=== PATIENT | male | born 1940 | race Caucasian/White ===

== ENCOUNTER 2023-11-14 21:36 | Inpatient (IN) ==
[2023-11-14] MEDS: HALOPERIDOL LACTATE 5 MG/ML 1 ML VIAL IM STA ×2 (22:42→23:33)
[2023-11-14] MEDS: LORazepam 1 MG/1 ML SYR ED Inj Use IM STA (22:46)
[2023-11-14] MEDS: LORazepam 2 MG/1 ML VIAL IM STA (23:33)
[2023-11-14 23:43] LABS: Basophils # (auto) 0.02 K/uL (0.00-0.20); Basophils % (auto) 0.5 %; Eosinophils # (auto) 0.11 K/uL (0.00-0.50); Eosinophils % (auto) 2.8 %; Hematocrit (blood only) 36.3 % (42.0-52.0); Hemoglobin 11.8 g/dl (14.0-18.0); Immature Granulocytes # (auto) 0.01 K/uL (0.01-0.20); Immature Granulocytes % (auto) 0.3 %; Lymphocytes # (auto) 1.07 K/uL (1.20-3.40); Lymphocytes % (auto) 27.1 %; Mean Corpuscular Hemoglobin 30.4 pg (25.0-34.0); Mean Corpuscular Hgb Conc 32.5 g/dL (32.0-36.0); Mean Corpuscular Volume 93.6 fL (80.0-100.0); Mean Platelet Volume 10.9 fL (9.4-12.4); Monocytes # (auto) 0.39 K/uL (0.11-0.59); Monocytes % (auto) 9.9 %; Neutrophils # (auto) 2.35 K/uL (1.40-6.50); Neutrophils % (auto) 59.4 %; Platelet Count 173 K/uL (130-400); RDW Coefficient of Variation 13.2 % (11.5-14.5); RDW Standard Deviation 45.1 fL (36.4-46.3); Red Blood Count 3.88 M/uL (4.70-6.10); White Blood Count 3.95 K/ul (4.8-10.8)
[2023-11-14 23:47] LABS: Albumin Globulin Ratio 1.5 (0.9-2); Albumin Level 3.8 gm/dl (3.4-5.0); BUN Creatinine Ratio 27.9 (10-20); Bilirubin,Total 0.6 mg/dl (0.2-1.0); Calcium 9.1 mg/dl (8.6-10.3); Creatinine Clr Calc Pharmacy 84.1 ml/min; Est GFR (African American) 103.1 ml/min; Est GFR (Non-African American) 88.9 ml/min; Globulin 2.5 gm/dl (2.5-4.0); Magnesium 1.7 mg/dl (1.7-2.4); Potassium 4.4 mmol/L (3.5-5.1); Total Protein 6.3 gm/dl (6.0-8.3)
[2023-11-14 23:54] LABS: Troponin I High Sensitivity 7.1 pg/ml (0-20)
[2023-11-15 00:04] LABS: Thyroid Stimulating Hormone 2.13 uIu/ml (0.300-4.500)
[2023-11-15 00:21] LABS: Appearance Urine Clear (Clear); Bilirubin Urine Negative (Negative); Blood Urine Negative (Negative); Color Urine Yellow; Glucose Urine UA Negative (Negative); Ketones Urine Negative (Negative); Leukocyte Esterase Urine Negative (Negative); Nitrite Urine Negative (Negative); Protein Urine Negative (Negative); Specific Gravity Urine 1.029 (1.000-1.030); Urobilinogen Urine Negative (Negative)
--- NOTE | 2023-11-15 01:08 | CT Scan Report ---
Exam(s): CT HEAD Without Contrast EXAM: CT Head Without Intravenous Contrast CLINICAL HISTORY: Reason for exam: AMS, agitation. TECHNIQUE: Axial computed tomography images of the head/brain without intravenous contrast. CTDI is 37.51 mGy and DLP is 624.41 mGy-cm. Automated exposure control was utilized for the study. A dose lowering technique was utilized adhering to the principles of ALARA. COMPARISON: No relevant prior studies available. FINDINGS: No acute intracranial hemorrhage. No midline shift or mass effect. The territorial gibbs-white matter differentiation is maintained throughout. Age-related cerebral volume loss. Periventricular and subcortical white matter hypoattenuation, consistent with chronic microangiopathy. The visualized orbits appear grossly unremarkable. The calvarium is intact. The visualized paranasal sinuses and mastoid air cells are grossly clear. IMPRESSION: No acute intracranial hemorrhage, midline shift, or mass effect. Electronically signed by: Guzman Curry MD 11/15/23 01:07 AM
--- NOTE | 2023-11-15 01:29 | History & Physical Report ---
Date of Service November 15, 2023 Assessment & Plan (1) Agitation: Plan: Patient with worsening aggression over the last 1-2 weeks. Per chart review, patient possibly on Abilify in the past. He was recently started on Haldol, presumably for his behavioral disturbances. Somnolent now after receiving Haldol and Ativan in the ER No obvious medical source of delirium to explain worsening symptoms -Admit to medical -Continue PO Haldol as needed for agitation competitive with care -One to one observation as needed -Restraints for now -Psychiatry consultation appreciated for aggression management (2) Lewy body dementia: Plan: Noted -Haldol recently started as needed for agitation -Haldol 1mg po TID as needed -Psychiatry consultation appreciated -Ideally patient will be able to return to [facility] if his agitation can be adequately controlled with medications (3) Hyperlipidemia: Plan: Chronic. Stable -Continue Atorvastatin -Continue Fenofibrate (4) Hypertension: Plan: Chronic. Well controlled -Continue Enalapril -Monitor (5) CAD (coronary artery disease): Plan: Chronic. Stable -Continue Atorvastatin, Plavix, Enalapril History of Present Illness Chief Complaint: agitation Primary Care Provider: Maggie Hayward, Patient somnolent after receiving Haldol and Ativan in the ER. History obtained through discussion with ER staff and chart review. Patient is an 83yo male with history of HTN, HLP and Dementia (likely Lewy body) presenting from [facility] with increased aggressive behavior. Patient with occasional outbursts, however, has had worsening symptoms over the last 1-2 weeks. This evening he was very difficult to control and did become aggressive with several staff members at his intermediate. In the ER patient was again aggressive with staff members. He was given Haldol and Ativan with improvement. Now resting comfortably ER Course: Haldol 1 + 2 mg Ativan 1 + 1 mg Allergies Allergy/AdvReac Type Severity Reaction Status Date / Time No Known Allergies Allergy Verified 10/11/23 21:41 Home Medications Medication Instructions Recorded Confirmed Type atorvastatin 80 mg tablet (Lipitor) 80 mg PO DAILY 01/09/19 10/11/23 History fenofibrate nanocrystallized 48 mg 48 mg PO DAILY 01/09/19 10/11/23 History tablet (Tricor) ramipril 2.5 mg capsule (Altace) 2.5 mg PO QAM 01/09/19 10/11/23 History melatonin 5 mg capsule 5 mg PO HS 11/05/21 10/11/23 History clopidogrel 75 mg tablet (Plavix) 75 mg PO DAILY 12/09/22 10/11/23 History olanzapine 2.5 mg tablet (Zyprexa) 2.5 mg PO BID 09/30/23 10/11/23 History Past Med/Surg History Problem List Agitation (Acute) AMS (altered mental status) (Acute) Lewy body dementia (Acute) [facility] following Thickened nails Hyperlipidemia Hypertension CAD (coronary artery disease) Surgical History H/O wrist surgery History of colonoscopy History of cardiac cath 05/2003 Family History Mother Cancer Family/Other No problems noted. Father Coronary heart disease Social History Smoking Status: Former smoker Do You Dip or Chew Tobacco: No; Hx Alcohol Use: No Hx Substance Use: No Preferred Language: Cambodian marital status: Current Living Situation: Spouse current occupational status: retired Feels Safe at Home: Yes Dental Care, Regularly: Yes Physical Activity Frequency: Does not Exercise Seatbelt Use: always Review of Systems Review of Systems: All systems reviewed & are unremarkable except as noted in HPI & below Physical Exam Physical Exam: General: patient somnolent, opens eyes to verbal stimuli, does not answer questions or follow commands at this time Skin: warm, dry, intact, no rashes or lesions HEENT: somnolent, MMM, Neck supple, PERRL Heart: +S1/S2, regular, no m/r/g Lungs: equal air entry bilaterally, no rales/rhonchi/wheezes Abd: +BS, soft, NT/ND, no masses/organomegaly/ascites Ext: warm, 2+ pulses in UE/LE bilaterally, no clubbing/cyanosis or edema Neuro: moving all extremities Results & Data Results & Data Vital Signs (Past 12 Hours) Vital Signs Pulse Pulse Resp BP Pulse Ox O2 Del Method 11/15/23 00:20 65 11/14/23 22:16 98 Room Air 11/14/23 21:36 98 H Room Air 11/14/23 21:36 Room Air 11/14/23 21:27 67 18 136/95 98 Room Air Laboratory Results Laboratory Results WBC 3.95 K/ul (4.8-10.8) L 11/14/23 23:03 RBC 3.88 M/uL (4.70-6.10) L 11/14/23 23:03 Hgb 11.8 g/dl (14.0-18.0) L 11/14/23 23:03 Hct 36.3 % (42.0-52.0) L 11/14/23 23:03 MCV 93.6 fL (80.0-100.0) 11/14/23 23:03 MCH 30.4 pg (25.0-34.0) 11/14/23 23:03 MCHC 32.5 g/dL (32.0-36.0) 11/14/23 23:03 RDW Std Deviation 45.1 fL (36.4-46.3) 11/14/23 23:03 RDW Coeff of Sergey 13.2 % (11.5-14.5) 11/14/23 23:03 Plt Count 173 K/uL (130-400) 11/14/23 23:03 MPV 10.9 fL (9.4-12.4) 11/14/23 23:03 Immature Gran % (Auto) 0.3 % 11/14/23 23:03 Neut % (Auto) 59.4 % 11/14/23 23:03 Lymph % (Auto) 27.1 % 11/14/23 23:03 Robertson % (Auto) 9.9 % 11/14/23 23:03 Eos % (Auto) 2.8 % 11/14/23 23:03 Baso % (Auto) 0.5 % 11/14/23 23:03 Neut # (Auto) 2.35 K/uL (1.40-6.50) 11/14/23 23:03 Lymph # (Auto) 1.07 K/uL (1.20-3.40) L 11/14/23 23:03 Robertson # (Auto) 0.39 K/uL (0.11-0.59) 11/14/23 23:03 Eos # (Auto) 0.11 K/uL (0.00-0.50) 11/14/23 23:03 Baso # (Auto) 0.02 K/uL (0.00-0.20) 11/14/23 23:03 Immature Gran # (Auto) 0.01 K/uL (0.01-0.20) 11/14/23 23:03 Sodium 142 mmol/L (136-145) 11/14/23 23:03 Potassium 4.4 mmol/L (3.5-5.1) 11/14/23 23:03 Chloride 110 mmol/L (98-107) H 11/14/23 23:03 Carbon Dioxide 26 mmol/L (21-32) 11/14/23 23:03 Anion Gap 6 (3-11) 11/14/23 23:03 BUN 19 mg/dl (6-23) 11/14/23 23:03 Creatinine 0.68 mg/dl (0.6-1.4) 11/14/23 23:03 Est Cr Clr Drug Dosing 84.1 ml/min 11/14/23 23:03 Est GFR ( Amer) 103.1 ml/min 11/14/23 23:03 Est GFR (Non-Af Amer) 88.9 ml/min 11/14/23 23:03 BUN/Creatinine Ratio 27.9 (10-20) H 11/14/23 23:03 Glucose 95 mg/dl (70-99(Fasting)) 11/14/23 23:03 Calcium 9.1 mg/dl (8.6-10.3) 11/14/23 23:03 Magnesium 1.7 mg/dl (1.7-2.4) 11/14/23 23:03 Total Bilirubin 0.6 mg/dl (0.2-1.0) 11/14/23 23:03 AST 33 U/L (13-39) 11/14/23 23:03 ALT 23 U/L (7-52) 11/14/23 23:03 Alkaline Phosphatase 69 U/L (34-104) 11/14/23 23:03 Troponin I High Sens 7.1 pg/ml (0-20) 11/14/23 23:03 Total Protein 6.3 gm/dl (6.0-8.3) 11/14/23 23:03 Albumin 3.8 gm/dl (3.4-5.0) 11/14/23 23:03 Globulin 2.5 gm/dl (2.5-4.0) 11/14/23 23:03 Albumin/Globulin Ratio 1.5 (0.9-2) 11/14/23 23:03 TSH 2.130 uIu/ml (0.300-4.500) 11/14/23 23:03 Urine Color Yellow 11/14/23 23:25 Urine Appearance Clear (Clear) 11/14/23:25 Urine pH 5.0 (4.5-7.5) 11/14/23:25 Ur Specific [place] 1.029 (1.000-1.030) 11/14/23 23: Urine Protein Negative (Negative) 11/14/23: Urine Glucose (UA) Negative (Negative) 11/14/23 23: Urine Ketones Negative (Negative) 11/14/23: Urine Blood Negative (Negative) 11/14/23 23: Urine Nitrite Negative (Negative) 11/14/23: Urine Bilirubin Negative (Negative) 11/14/23 23: Urine Urobilinogen Negative (Negative) 11/14/23 23: Ur Leukocyte Esterase Negative (Negative) 11/14/23 23:[address] 11/14/23 23:53 Exam(s): CT HEAD Without Contrast EXAM: CT Head Without Intravenous Contrast CLINICAL HISTORY: Reason for exam: AMS, agitation. TECHNIQUE: Axial computed tomography images of the head/brain without intravenous contrast. CTDI is 37.51 mGy and DLP is 624.41 mGy-cm. Automated exposure control was utilized for the study. A dose lowering technique was utilized adhering to the principles of ALARA. COMPARISON: No relevant prior studies available. FINDINGS: No acute intracranial hemorrhage. No midline shift or mass effect. The territorial gibbs-white matter differentiation is maintained throughout. Age-related cerebral volume loss. Periventricular and subcortical white matter hypoattenuation, consistent with chronic microangiopathy. The visualized orbits appear grossly unremarkable. The calvarium is intact. The visualized paranasal sinuses and mastoid air cells are grossly clear. IMPRESSION: No acute intracranial hemorrhage, midline shift, or mass effect. Electronically signed by: Guzman Curry MD 11/15/23 01:07 AM ECG Additional Comments: EKG with SR at 64bpm, 1st degree AV block with FE=526, PKV=396, NIm=150, no acute ischemic changes PG Care Time/CCT Total # of Minutes Spent Total Time Spent with Patient: Total time spent is greater than 50% in coordination of care (as documented) at patient's floor/unit and/or counseling patient: Coding Level of Care Code 89233 INT INP/OBS CARE 3/75MIN Diagnoses Agitation R45.1 Lewy body dementia G31.83; F02.80 Hyperlipidemia E78.5 Hypertension I10 CAD (coronary artery disease) I25.10
--- NOTE | 2023-11-15 02:33 | Emergency Department Note ---
Impression & Plan AMS (altered mental status), Lewy body dementia, Agitation ED Provider Note NAME: RAJINDER PATEL AGE: 83 SEX: Male INFORMANT: EMS and staff at his facility ED PROVIDER(S): Kenroy Bennett MD CHIEF COMPLAINT: Altered mental status PLAN: Disposition: Admitted Outpatient prescription management: none Referral: None MEDICAL DECISION MAKING: Patient presented because of concerns for aggression and agitation. Patient did require one-on-one here. He was not responding to verbal command. He did require full side rails as well as physical hold at time. Patient was threatening and kicking at staff. Patient did require sedation to assist with his medical workup and to protect him as well as staff. Patient was initially given a 1 mg dose of Haldol and Ativan IM. This helped somewhat however patient still required additional medication in order to help control him. He was given a 1 mg IM dose of Ativan and a 2 mg dose of IM Haldol. Patient was monitored. His O2 saturations were borderline and he was given supplemental oxygen. Head CT did not reveal any acute findings. Patient CBC and chemistry panel were unremarkable as was his urinalysis. No sign of UTI or acute brain bleed. No gross abnormalities on laboratory testing. Discussed with manager of exhibitions and collections. In light of his aggressive behavior that cannot be controlled at his facility further management in the hospital was felt to be appropriate. [facility] Patient was evaluated in the ER and admitted for further management. Care/management discussed with: manager of exhibitions and collections Level of care consideration(s): After review of the information above and other included data, I feel the patient requires escalation of care to admission Triage Nursing notes: reviewed and agree them. Vital Signs: reviewed and remarkable for no significant abnormalities Additional History obtained from: Patient's staff at his residence noted that he was physically aggressive. He was grabbing staff. He was kicking. He was not controllable for them. Chronic Medical/Social Conditions affecting care: Dementia Prior/ Outside/ External records reviewed: none Differential Diagnosis: Advancing dementia, infection, hypoglycemia, electrolyte abnormalities, overdose, toxicologic, cardiac sources, intracerebral event, neurologic, trauma, as well as other pathologies. Diagnostics, independently interpreted by me: ECG: Twelve-lead ECG was a sinus rhythm with first-degree block at 64 bpm. No evidence of ST elevation or depression. Cardiac Monitoring: Cardiac monitoring ordered by me: The patient was placed on continuous cardiac monitoring and observed. It revealed a normal sinus rhythm at 65 beats per minute without ectopy or evidence of dysrhythmia. Medical decision rules: none Imaging studies: Chest x-ray. Findings: A chest x-ray was performed and revealed no pneumothorax, effusion, infiltrate, pulmonary edema, free air under the diaphragm, or wide mediastinum. Impression: No acute disease. Head CT: A noncontrast CT scan of the head was performed and was negative for tumor, fracture, intracranial hemorrhage, or other acute pathology. HPI: 83 year old Male arrives for evaluation of altered mental status. [facility]. Staff reports that he was physically aggressive. He was grabbing and kicking at staff. He physically grabbed and lifted one of the staff members. They were unable to control him. He has a history of dementia and does get altered at times. This is the most aggressive that he has been. Because of their inability to control him they were concerned and EMS was summoned. Patient was brought to the ER for further management. History is limited secondary to the patient's dementia. He is uncooperative. PAST MEDICAL HISTORY: See Below, dementia PAST SURGICAL HISTORY: See Below, SOCIAL HISTORY: See Below, retired HOME MEDICATIONS: See Below ALLERGIES: See Below VITALS: See Below PHYSICAL EXAMINATION: GENERAL: Awake, alert, [id number], in no acute distress HENT: Normocephalic, atraumatic. Oropharynx unremarkable. EYES: Normal conjunctiva. Sclera non-icteric. NECK: Supple. No nuchal rigidity. FROM. No JVD. RESPIRATORY: Clear to auscultation. CARDIAC: Regular rate, normal rhythm. Extremities warm and well perfused. Pulses equal. ABDOMEN: Soft, non-distended. No tenderness to palpation. No rebound or guarding. No masses. RECTAL: Deferred. MUSCULOSKELETAL: Chest examination reveals no tenderness. The back is symmetrical on inspection without obvious abnormality. There is no CVA tenderness to palpation. No joint edema. LOWER EXTREMITIES: Calves are equal size bilaterally and non-tender. No edema. No discoloration. NEURO: Demented sensorium. Moving arms and legs purposefully. Difficulty with following commands. SKIN: No rash or jaundice noted. PROCEDURES: none CRITICAL CARE: I have personally spent 35 minutes of critical care time in the direct management of this patient. This includes bedside care, interpretation of diagnostic studies, and testing, discussion with consultants, patient, case management and other required patient management activities. These minutes are in excess of all separately billable procedures. OBSERVATION NOTE: none Past Med/Surg History Problem List (Updated 11/15/23 @ 02:33 by Kenroy Bennett MD) Agitation (Acute) AMS (altered mental status) (Acute) Lewy body dementia (Acute) [facility] following Thickened nails Hyperlipidemia Hypertension CAD (coronary artery disease) Surgical History H/O wrist surgery History of colonoscopy History of cardiac cath 05/2003 Family History Mother Cancer Family/Other No problems noted. Father Coronary heart disease Social History Smoking Status: Former smoker Do You Dip or Chew Tobacco: No; Hx Alcohol Use: No Hx Substance Use: No Preferred Language: Greek marital status: Current Living Situation: Spouse current occupational status: retired Feels Safe at Home: Yes Dental Care, Regularly: Yes Physical Activity Frequency: Does not Exercise Seatbelt Use: always Allergies Allergies Allergy/AdvReac Type Severity Reaction Status Date / Time No Known Allergies Allergy Verified 10/11/23 21:41 Home Meds Home Medications Medication Instructions Recorded Confirmed atorvastatin 80 mg tablet (Lipitor) 80 mg PO DAILY 01/09/19 10/11/23 fenofibrate nanocrystallized 48 mg 48 mg PO DAILY 01/09/19 10/11/23 tablet (Tricor) ramipril 2.5 mg capsule (Altace) 2.5 mg PO QAM 01/09/19 10/11/23 melatonin 5 mg capsule 5 mg PO HS 11/05/21 10/11/23 clopidogrel 75 mg tablet (Plavix) 75 mg PO DAILY 12/09/22 10/11/23 olanzapine 2.5 mg tablet (Zyprexa) 2.5 mg PO BID 09/30/23 10/11/23 Results & Data (ED) Vital Signs Vital Signs - 24 hr 11/14/23 21:27 11/14/23 21:36 11/14/23 21:36 Pulse Rate 67 Pulse Rate [Foot] 98 H Respiratory Rate 18 Respiratory Effort / Characteristics Non-Labored Non-Labored Respiratory Depth Normal Normal Blood Pressure 136/95 Blood Pressure Mean 108 Pulse Oximetry 98 Oxygen Delivery Method Room Air Room Air Room Air Sepsis Recent Fever Within 48 Hours No Sepsis New/Unexplained Change in Mental Status No Sepsis Action Taken by Nursing No Action Required 11/14/23 22:16 11/14/23 23:36 11/15/23 00:20 Pulse Rate 65 Pulse Rate [Foot] Respiratory Rate Respiratory Effort / Characteristics Non-Labored Respiratory Depth Normal Blood Pressure Blood Pressure Mean Pulse Oximetry 98 Oxygen Delivery Method Room Air Sepsis Recent Fever Within 48 Hours Sepsis New/Unexplained Change in Mental Status Sepsis Action Taken by Nursing Laboratory Data 11/14/23 23:03 11/14/23 23:03 Lab Results 11/14/23 11/14/23 Range/Units 23:03 23:25 WBC 3.95 L (4.8-10.8) K/ul RBC 3.88 L (4.70-6.10) M/uL Hgb 11.8 L (14.0-18.0) g/dl Hct 36.3 L (42.0-52.0) % MCV 93.6 (80.0-100.0) fL MCH 30.4 (25.0-34.0) pg MCHC 32.5 (32.0-36.0) g/dL RDW Std Deviation 45.1 (36.4-46.3) fL RDW Coeff of Sergey 13.2 (11.5-14.5) % Plt Count 173 (130-400) K/uL MPV 10.9 (9.4-12.4) fL Immature Gran % (Auto) 0.3 % Neut % (Auto) 59.4 % Lymph % (Auto) 27.1 % [place] % (Auto) 9.9 % Eos % (Auto) 2.8 % Baso % (Auto) 0.5 % Neut # (Auto) 2.35 (1.40-6.50) K/uL Lymph # (Auto) 1.07 L (1.20-3.40) K/uL [place] # (Auto) 0.39 (0.11-0.59) K/uL Eos # (Auto) 0.11 (0.00-0.50) K/uL Baso # (Auto) 0.02 (0.00-0.20) K/uL Immature Gran # (Auto) 0.01 (0.01-0.20) K/uL Sodium 142 (136-145) mmol/L Potassium 4.4 (3.5-5.1) mmol/L Chloride 110 H (98-107) mmol/L Carbon Dioxide 26 (21-32) mmol/L Anion Gap 6 (3-11) BUN 19 (6-23) mg/dl Creatinine 0.68 (0.6-1.4) mg/dl Est Cr Clr Drug Dosing 84.1 ml/min Est GFR ( Amer) 103.1 ml/min Est GFR (Non-Af Amer) 88.9 ml/min BUN/Creatinine Ratio 27.9 H (10-20) Glucose 95 (70-99(Fasting)) mg/dl Calcium 9.1 (8.6-10.3) mg/dl Magnesium 1.7 (1.7-2.4) mg/dl Total Bilirubin 0.6 (0.2-1.0) mg/dl AST 33 (13-39) U/L ALT 23 (7-52) U/L Alkaline Phosphatase 69 (34-104) U/L Troponin I High Sens 7.1 (0-20) pg/ml Total Protein 6.3 (6.0-8.3) gm/dl Albumin 3.8 (3.4-5.0) gm/dl Globulin 2.5 (2.5-4.0) gm/dl Albumin/Globulin Ratio 1.5 (0.9-2) TSH 2.130 (0.300-4.500) uIu/ml Urine Color Yellow Urine Appearance Clear (Clear) Urine pH 5.0 (4.5-7.5) Ur Specific [place] 1.029 (1.000-1.030) Urine Protein Negative (Negative) Urine Glucose (UA) Negative (Negative) Urine Ketones Negative (Negative) Urine Blood Negative (Negative) Urine Nitrite Negative (Negative) Urine Bilirubin Negative (Negative) Urine Urobilinogen Negative (Negative) Ur Leukocyte Esterase Negative (Negative) Administered Medications Discontinued Medications Haloperidol Lactate (Haloperidol Lactate 5 Mg/Ml 1 Ml Vial) 1 mg IM NOW STA Stop: 11/14/23 22:27 Last Admin: 11/14/23 22:42 Dose: 1 mg Documented By: ERIKA Haloperidol Lactate (Haloperidol Lactate 5 Mg/Ml 1 Ml Vial) 2 mg IM NOW STA Stop: 11/14/23 23:25 Last Admin: 11/14/23 23:33 Dose: 2 mg Documented By: ERIKA Lorazepam (Lorazepam 1 Mg/1 Ml Syr Ed Inj Use) 1 mg IM ONE STA Stop: 11/14/23 22:27 Last Admin: 11/14/23 22:46 Dose: 1 mg Documented By: ERIKA Lorazepam (Lorazepam 2 Mg/1 Ml Vial) 1 mg IM NOW STA Stop: 11/14/23 23:25 Last Admin: 11/14/23 23:33 Dose: 1 mg Documented By: ERIKA Imaging Data Radiologist's Impression: Head CT 11/14/23 23:53 Exam(s): CT HEAD Without Contrast EXAM: CT Head Without Intravenous Contrast CLINICAL HISTORY: Reason for exam: AMS, agitation. TECHNIQUE: Axial computed tomography images of the head/brain without intravenous contrast. CTDI is 37.51 mGy and DLP is 624.41 mGy-cm. Automated exposure control was utilized for the study. A dose lowering technique was utilized adhering to the principles of ALARA. COMPARISON: No relevant prior studies available. FINDINGS: No acute intracranial hemorrhage. No midline shift or mass effect. The territorial gibbs-white matter differentiation is maintained throughout. Age-related cerebral volume loss. Periventricular and subcortical white matter hypoattenuation, consistent with chronic microangiopathy. The visualized orbits appear grossly unremarkable. The calvarium is intact. The visualized paranasal sinuses and mastoid air cells are grossly clear. IMPRESSION: No acute intracranial hemorrhage, midline shift, or mass effect. Electronically signed by: Guzman Curry MD 11/15/23 01:07 AM Discharge Plan Visit Data Chief Complaint: Altered Mental Status Stated Complaint: PHYSICALLY ABUSIVE OF STAFF ED Provider: Kenroy Bennett Discharge Problem: AMS (altered mental status), Lewy body dementia, Agitation Forms Stand Alone Forms: My [facility] Prescriptions Prescriptions: No Action ramipril [Altace] 2.5 mg capsule 2.5 mg PO QAM atorvastatin [Lipitor] 80 mg tablet 80 mg PO DAILY fenofibrate nanocrystallized [Tricor] 48 mg tablet 48 mg PO DAILY clopidogrel [Plavix] 75 mg tablet 75 mg PO DAILY melatonin 5 mg capsule 5 mg PO HS olanzapine [Zyprexa] 2.5 mg Tablet 2.5 mg PO BID Referrals Referrals: Maggie Hayward DO [Primary Care Provider] -
[2023-11-15] MEDS ORDERED: ACETAMINOPHEN 325 MG TAB PO PRN (02:40)
[2023-11-15] MEDS ORDERED: haloperidoL 1 MG TAB PO PRN (02:40)
[2023-11-15] MEDS ORDERED: MELATONIN 3 MG TAB PO PRN (02:55)
[2023-11-15] MEDS: HALOPERIDOL LACTATE 5 MG/ML 1 ML VIAL IM STA (06:07)
--- NOTE | 2023-11-15 07:15 | XRay Report ---
XR chest 1V portable HISTORY: 83 years-old Male weakness COMPARISON: None TECHNIQUE: AP view of the chest FINDINGS: Cardiac silhouette is mildly enlarged. Mild interstitial coarsening appears chronic. No pneumothorax, pleural effusion or airspace consolidation. Degenerative changes of the shoulders and spine. IMPRESSION: Cardiomegaly with interstitial coarsening which may be chronic. ACT 112: Negative or not required by law. The above report was generated using voice recognition software. It may contain grammatical, syntax o r spelling errors. Electronically signed by: Kian Quinn M.D. 11/15/2023 7:13 AM
--- NOTE | 2023-11-15 08:33 | Electrocardiogram Report ---
Test Reason : Blood Pressure : */* mmHG Vent. 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
[2023-11-15] MEDS: ATORVASTATIN 40 MG TAB PO SCH (09:43)
[2023-11-15] MEDS: CLOPIDOGREL BISULFATE 75 MG TAB PO SCH (09:43)
[2023-11-15] MEDS: ENALAPRIL MALEATE 5 MG TAB PO SCH (09:44)
[2023-11-15] MEDS: FENOFIBRATE NANOCRYSTALLIZED 48 MG TABLET PO SCH (09:44)
[2023-11-15] MEDS ORDERED: OLANZAPINE 2.5 MG TAB PO PRN (09:49)
[2023-11-15] MEDS: LORazepam 2 MG/1 ML VIAL IM STA (10:05)
--- NOTE | 2023-11-15 10:15 | Hospitalist Progress Note ---
Date of Service November 15, 2023 Assessment & Plan (1) Agitation: Plan: 2 weeks hx worsening agitation likely due to noncompliance to his regular medication. patient stopped taking his regular medications 2 weeks ago per his senior care On workup there was no obvious source of infection or any acute electrolyte abnormality. Pt was on Abilify in the past. He was recently started on Haldol PO tid at senior care. Plan: Psych onboard Started on IM olanzapine 2.5mg BID prn and switch to PO when appropriate. -One to one observation as needed -monitor vitals Present on Admission?: Yes (2) Lewy body dementia: Plan: Possible further progression of disease. Plan: Psych onboard. d/c haldol. started on olanzapine as above. Present on Admission?: Yes (3) Hyperlipidemia: Plan: Chronic. Stable -C/w Atorvastatin -c/w Fenofibrate (4) Hypertension: Plan: Chronic. Well controlled -C/w Enalapril -Monitor (5) CAD (coronary artery disease): Plan: Chronic. Stable (PCI to RCA KANE in 2003) -Continue Atorvastatin, Plavix, Enalapril Present on Admission?: Yes Admission and Anticipated Discharge Date Admission Date: November 15, 2023 Supervising Physician Co-Signing Physician Notes Attending Physician Supervision Note: I independently interviewed and examined the patient and verified the meek history and physical, reviewed labs and image studies and agree with findings and care plan noted above. Restless in bed most morning, falling asleep off and on. Acute onset of agitation 2 wks ago and stopped taking routine meds Lewy body dementia - Resident at [facility], [place] [facility] -ED work up negative including CT head. -consider KUB when able to. -Psych input - Haldol d/janis. Olanzapine ODT and IM for behavioral emergencies. Pending response - assess need for GOC discussion. Subjective Pt was seen and evaluated this morning. 1:1 help by the bedside, pt still slightly restless. Pt not verbalizing and not following any commands. Nurse was by bedside, Pt received multiple doses of Haldol and Ativan since admission overnight. No report of fevers. Review of Systems Review of Systems: Could not be performed as pt AMS Physical Exam Physical Exam: General:restless , breathing on room air. HEENT: Normocephalic, moist oral mucosa, no neck stiffness Cardio: Regular rate and rhythm, no murmur, Resp:Lungs clear to auscultation b/l, no wheezes or rhonchi, GI: Soft and nontender, nondistended, bowel sounds active Skin: Warm, pink, dry, no rash Psych: Delirious,agitated, Results & Data Results & Data Vital Signs (Past 12 Hours) Vital Signs Temp Pulse Pulse Resp BP BP Pulse Ox 11/15/23 05:00 11/15/23 04:56 36.8 C 89 18 130/80 96 11/15/23 04:28 67 16 112/76 98 11/15/23 04:15 11/15/23 04:12 83 17 99 11/15/23 03:36 61 16 98 11/15/23 03:12 63 16 94 11/15/23 03:00 133/76 11/15/23 03:00 133/76 11/15/23 03:00 133/76 11/15/23 03:00 61 12 97 11/15/23 02:57 59 L 12 95 11/15/23 02:40 73 16 11/15/23 02:30 78 19 98 11/15/23 02:21 80 16 96 11/15/23 02:12 60 12 98 11/15/23 01:57 60 13 97 11/15/23 01:39 133/78 11/15/23 01:39 133/78 11/15/23 01:27 61 13 99 11/15/23 01:24 60 13 98 11/15/23 01:03 68 16 11/15/23 00:42 65 17 11/15/23 00:30 61 12 96 11/15/23 00:27 66 15 11/15/23 00:21 107/76 11/15/23 00:21 107/76 11/15/23 00:20 65 11/14/23 22:16 98 O2 Del Method O2 Flow Rate 11/15/23 05:00 Room Air 11/15/23 04:56 Room Air 11/15/23 04:28 Nasal Cannula 3 11/15/23 04:15 Room Air 11/15/23 04:12 11/15/23 03:36 11/15/23 03:12 11/15/23 03:00 11/15/23 03:00 11/15/23 03:00 11/15/23 03:00 11/15/23 02:57 11/15/23 02:40 Nasal Cannula 3 11/15/23 02:30 11/15/23 02:21 11/15/23 02:12 11/15/23 01:57 11/15/23 01:39 11/15/23 01:39 11/15/23 01:27 11/15/23 01:24 11/15/23 01:03 11/15/23 00:42 11/15/23 00:30 Nasal Cannula 3 11/15/23 00:27 11/15/23 00:21 11/15/23 00:21 11/15/23 00:20 11/14/23 22:16 Room Air Resident Activity Tracking Resident Involvement: Resident Care Provided Care Provided: Adult [facility] Medicine (2) Lewy body dementia Dementia behavioral or psychological symptom: with other behavioral disturbance Dementia severity: severe Qualified Code(s): G31.83 - Neurocognitive disorder with Lewy bodies; F02.C18 - Dementia in other diseases classified elsewhere, severe, with other behavioral disturbance (3) Hyperlipidemia Hyperlipidemia type: unspecified Qualified Code(s): E78.5 - Hyperlipidemia, unspecified (4) Hypertension Hypertension type: unspecified Qualified Code(s): I10 - Essential (primary) hypertension (5) CAD (coronary artery disease) Associated angina: with stable angina Coronary Disease-Associated Artery/Lesion type: [place] artery [place] vs. transplanted heart: viejas heart Qualified Code(s): I25.118 - Atherosclerotic heart disease of [place] coronary artery with other forms of angina pectoris
[2023-11-15] MEDS ORDERED: OLANZapine ZYDIS 5 MG ORALLY DIS. TAB PO PRN (11:35)
--- NOTE | 2023-11-15 11:42 | Psychiatric Consultation ---
Date of Consultation November 15, 2023 Impression / Recommendations Impression 83 yo man who resides at [facility] with history of Lewy Body dementia, HTN admitted medically for recent new onset aggressive behavior in the last 1-2 weeks. Psychiatry consulted for medication recommendations for agitation. Diagnostically consistent with lewy body dementia (per history and review of outpt neurology diagnosis) with behavioral disturbance. Given report of sudden change in behavior, may also be a hyperactive delirium component to his presentation. Goal in dementia is to avoid medication management of behaviors if possible by maximizing non-pharmacologic strategies for behavioral management. However, given worsening agitation/aggression use of an antipsychotic warranted as risk/benefit profile now favors treatment. Note all antipsychotic medications carry black box warning for increased risk of all-cause mortality in setting of dementia. Overall, I spent a total of 45 minutes with this case including review of chart records, review of labwork, review of EKG QTc, direct evaluation of the patient at bedside, counseling the patient, discussion of the patient with the Nurse and with the hospitalist provider, discussion with the psychiatric liason during clinical rounds and documentation in the electronic health record. (1) Lewy body dementia with behavioral disturbance: (2) Agitation: Plan -Discontinue haldol (and avoid all first generation antipsychotics and risperidone given increased risk for EPS and Parkinsonism side effects in LBD) -Recommend olanzapine 2.5mg ODT BID prn for agitation -For acute behavioral emergency recommend: olanzapine 2.5 mg IM x 1 (DO NOT exceed 10mg per 24 hours, check EKG if IM dose required, NEVER co-administer with IM or IV benzodiazepines). Once he is agreeable to taking po medication then would consider: -Consider seroquel 12.5 mg qhs and can titrate up to 25mg BID for behavioral management as needed; would check EKG QTc routinely -Agree with melatonin 3mg qhs prn which is currently ordered Psych History Identifying Data 83 yo man who resides at [facility] with history of Lewy Body dementia, HTN admitted medically for recent new onset aggressive behavior in the last 1-2 weeks. Psychiatry consulted for medication recommendations for agitation. Chief Complaint mumbles History of Present Illness Jhonny was admitted for sudden onset and increase of aggressive behavior over the last 1-2 weeks at [facility]. He required two doses of haldol and ativan IM in the emergency department. Today presents with significant restlessness, mumbling incoherently. Per discussion with KATARZYNA, he has been trying to hit and biting staff. Per chart review recent script for haldol on 11/14/2023 and history of sertraline. Unclear if he was taking sertraline recently. Possible history of abilify use in the past. Allergies Allergy/AdvReac Type Severity Reaction Status Date / Time No Known Allergies Allergy Verified 10/11/23 21:41 Home Medications Medication Instructions Recorded Confirmed Type atorvastatin 80 mg tablet (Lipitor) 80 mg PO DAILY 01/09/19 10/11/23 History fenofibrate nanocrystallized 48 mg 48 mg PO DAILY 01/09/19 10/11/23 History tablet (Tricor) ramipril 2.5 mg capsule (Altace) 2.5 mg PO QAM 01/09/19 10/11/23 History melatonin 5 mg capsule 5 mg PO HS 11/05/21 10/11/23 History clopidogrel 75 mg tablet (Plavix) 75 mg PO DAILY 12/09/22 10/11/23 History olanzapine 2.5 mg tablet (Zyprexa) 2.5 mg PO BID 09/30/23 10/11/23 History Patient History Surgical History H/O wrist surgery History of colonoscopy History of cardiac cath 05/2003 Family History Mother Cancer Family/Other No problems noted. Father Coronary heart disease Social History Smoking Status: Unknown if ever smoked Do You Dip or Chew Tobacco: No; Hx Alcohol Use: No Hx Substance Use: No Preferred Language: Portuguese Communication Ability: Impaired Communication Ability Comment: dementia Drying Room Attendant Required: No Beliefs That Will Affect Care: None marital status: Current Living Situation: Personal Care Facility Current Living Situation Comment: [facility] current occupational status: retired Other Information That Helps Us Care for You: No Feels Safe at Home: Yes Safety Concerns: Feels Safe At This Time Dental Care, Regularly: Yes Physical Activity Frequency: Does not Exercise Seatbelt Use: always Physical Exam Psychiatric: Orientation: alert; + not oriented to place and + not oriented to time Apperance: + disheveled Eye Contact: + poor eye contact Motor Behavior: + psychomotor agitation and + akathisia Speech: + abnormal rate/rhythm/volume of speech Insight: + poor insight Judgment: + poor judgement Vital Signs (Past 24 Hours): Last Vital Signs Temp 36.8 C 11/15/23 04:56 Pulse 89 11/15/23 04:56 Resp 18 11/15/23 04:56 BP 130/80 11/15/23 04:56 Pulse Ox 96 11/15/23 04:56 O2 Del Method Room Air 11/15/23 05:00 O2 Flow Rate 3 11/15/23 04:28 Results & Data (PSY) Medications Administered Atorvastatin Calcium (Atorvastatin 40 Mg Tab) 80 mg PO DAILY MARCO Stop: 12/15/23 08:59 Last Admin: 11/15/23 09:43 Dose: Not Given Documented By: PAPO Clopidogrel Bisulfate (Clopidogrel Bisulfate 75 Mg Tab) 75 mg PO DAILY [facility] Stop: 12/15/23 08:59 Last Admin: 11/15/23 09:43 Dose: Not Given Documented By: PAPO Enalapril Maleate (Enalapril Maleate 5 Mg Tab) 5 mg PO QAM [facility] Stop: 12/15/23 08:59 Last Admin: 11/15/23 09:44 Dose: Not Given Documented By: PAPO Fenofibrate (Fenofibrate Nanocrystallized 48 Mg Tablet) 48 mg PO DAILY [facility] Stop: 12/15/23 08:59 Last Admin: 11/15/23 09:44 Dose: Not Given Documented By: PAPO Coding Level of Care Code 21148 IN/OBS CONSULT LVL 3,45M Diagnoses Lewy body dementia with behavioral disturbance G31.83; F02.818 Agitation R45.1
[2023-11-15] MEDS: OLANZapine 10 MG/2.1 ML SDV IM PRN (15:32)
[2023-11-15] MEDS: PNEUMOCOCCAL VACCINE (PCV20) 20-VAL CONJ-DIP CRM/PF 0.5 ML SYR IM ONE (15:40)
[2023-11-16 06:59] VITALS: BP 121/74; PULSE 82; RESP 20; TEMP 97.5; O2SAT 95
[2023-11-16 12:23] LABS: Basophils # (auto) 0.02 K/uL (0.00-0.20); Basophils % (auto) 0.3 %; Eosinophils # (auto) 0.16 K/uL (0.00-0.50); Eosinophils % (auto) 2.6 %; Hemoglobin 13.1 g/dl (14.0-18.0); Immature Granulocytes # (auto) 0.01 K/uL (0.01-0.20); Immature Granulocytes % (auto) 0.2 %; Lymphocytes # (auto) 0.68 K/uL (1.20-3.40); Lymphocytes % (auto) 11.1 %; Mean Corpuscular Hemoglobin 30.3 pg (25.0-34.0); Mean Corpuscular Hgb Conc 32.8 g/dL (32.0-36.0); Mean Corpuscular Volume 92.6 fL (80.0-100.0); Mean Platelet Volume 10.4 fL (9.4-12.4); Monocytes # (auto) 0.63 K/uL (0.11-0.59); Monocytes % (auto) 10.3 %; Neutrophils # (auto) 4.64 K/uL (1.40-6.50); Neutrophils % (auto) 75.5 %; Platelet Count 186 K/uL (130-400); RDW Coefficient of Variation 12.9 % (11.5-14.5); RDW Standard Deviation 43.9 fL (36.4-46.3); Red Blood Count 4.32 M/uL (4.70-6.10); White Blood Count 6.14 K/ul (4.8-10.8)
[2023-11-16 12:30] LABS: Albumin Globulin Ratio 1.5 (0.9-2); Albumin Level 3.8 gm/dl (3.4-5.0); BUN Creatinine Ratio 20.4 (10-20); Bilirubin,Total 1.2 mg/dl (0.2-1.0); Calcium 9.1 mg/dl (8.6-10.3); Creatinine Clr Calc Pharmacy 108.9 ml/min; Est GFR (African American) 113.3 ml/min; Est GFR (Non-African American) 97.8 ml/min; Globulin 2.5 gm/dl (2.5-4.0); Potassium 3.3 mmol/L (3.5-5.1); Total Protein 6.3 gm/dl (6.0-8.3)
[2023-11-16] MEDS ORDERED: LORazepam 2 MG/1 ML VIAL IV PRN (13:37)
[2023-11-16] MEDS ORDERED: HYOSCYAMINE SULFATE 0.125 MG TAB SL PRN (13:37)
[2023-11-16] MEDS ORDERED: ATROPINE SULFATE 1% OP SOLN 5 ML BTL SL PRN (13:37)
[2023-11-16] MEDS ORDERED: ONDANSETRON INJ 2 MG/ML 2 ML VIAL IV PRN (13:37)
[2023-11-16] MEDS ORDERED: GLYCOPYRROLATE 0.2 MG/ML VIAL IV PRN (13:37)
[2023-11-16] MEDS ORDERED: ONDANSETRON 4 MG OD TAB SL PRN (13:37)
[2023-11-16] MEDS ORDERED: MoRPHine SULFATE 2 MG/ML CARP IV PRN (13:37)
--- NOTE | 2023-11-16 13:54 | Communication Note ---
Date of Service: November 16, 2023 Met with pt and pt's daughter, Abena (pt's POA) at bedside. Pt non contributory to conversation d/t AMS. Explained current hospital course including adjustment of medications and psych consult. Daughter explains that she is currently talking with [facility] to set up hospice upon discharge. Discussed GOC- at this point, pt's daughter is focused on comfort for her father. She understands that there is no cure for his dementia and he has been on a continual decline for the last few years. She wants to move forward with only interventions that provide comfort including medications for agitation, secretions, etc. She would like her father to have pleasure feeds as able- she understands the risks of aspiration. FOWL BLOOD TESTER ordered for the rest of pt's in hospital stay. Case management informed. Plan for discharge back to [facility] either tomorrow or Tuesday pending clinical status and ability for hospice services to be set up. Resident Activity Tracking Resident Involvement: Resident Care Provided Care Provided: Adult Hospital Medicine
[2023-11-16] MEDS ORDERED: LORazepam 0.5 MG TAB PO PRN (13:58)
--- NOTE | 2023-11-16 14:57 | Hospitalist Progress Note ---
Date of Service November 16, 2023 Assessment & Plan (1) Agitation: Plan: 2 weeks hx worsening agitation likely due to noncompliance to his regular medication. patient stopped taking his regular medications 2 weeks ago per his [facility] On workup there was no obvious source of infection or any acute electrolyte abnormality. Pt was on Abilify in the past. He was recently started on Haldol PO tid at [facility]. Restlessness slightly improved after started on olanzapine. Plan: Psych onboard - Olanzapine 2.5mg BID prn and switch to PO when appropriate. -c/w One to one observation. -monitor vitals (2) Lewy body dementia: Plan: Possible further progression of disease. progressive decline - daughter wants comfort measures from now on. Plan: Psych onboard. on olanzapine as above. (3) Hyperlipidemia: Plan: Chronic. Stable -C/w Atorvastatin -c/w Fenofibrate (4) Hypertension: Plan: Chronic. Well controlled -C/w Enalapril -Monitor (5) CAD (coronary artery disease): Plan: Chronic. Stable (PCI to RCA KANE in 2003) -Continue Atorvastatin, Plavix, Enalapril Admission and Anticipated Discharge Date Admission Date: November 15, 2023 Supervising Physician Co-Signing Physician Notes Attending Physician Supervision Note: I independently interviewed and examined the patient and verified the meek history and physical, reviewed labs and image studies and agree with findings and care plan noted above. Some improvement in Restless. falling asleep off and on. Acute onset of agitation 2 wks ago and stopped taking routine meds Lewy body dementia - Resident at [facility], [facility] -ED work up negative including CT head. -Psych input - Haldol d/janis. Olanzapine ODT and IM for behavioral emergencies. -Once able to take PO - to start daily olanzapine PO. Per Resident physician discussion with Daughter - Transitioned care to comfort only. Subjective Pt was seen and evaluated this morning. 1:1 help by the bedside. Restlessness slightly improved but Pt not verbalizing or responding to commands, only making some incoherent mumbling sounds. Nurse was by bedside. No report of fevers. Pt started Olanzapine 2.5mg yesterday. Pts daughter, JONNIE, wants comfort measures only from now on. Review of Systems Review of Systems: pt AMS RoS not possible. Physical Exam Physical Exam: General:restless , breathing on room air. HEENT: Normocephalic, moist oral mucosa, no neck stiffness Cardio: Regular rate and rhythm, no murmur, Resp:Lungs clear to auscultation b/l, no wheezes or rhonchi, GI: Soft and nontender, nondistended, bowel sounds active Skin: Warm, pink, dry, no rash Psych: Delirious,agitated, Results & Data Results & Data Vital Signs (Past 12 Hours) Vital Signs Temp Pulse Resp BP Pulse Ox O2 Del Method 11/16/23 06:54 36.4 C L 82 20 121/74 95 Room Air Resident Activity Tracking Resident Involvement: Resident Care Provided Care Provided: Adult Hospital Medicine (2) Lewy body dementia Dementia behavioral or psychological symptom: with other behavioral disturbance Dementia severity: severe Qualified Code(s): G31.83 - Neurocognitive disorder with Lewy bodies; F02.C18 - Dementia in other diseases classified elsewhere, severe, with other behavioral disturbance (3) Hyperlipidemia Hyperlipidemia type: unspecified Qualified Code(s): E78.5 - Hyperlipidemia, unspecified (4) Hypertension Hypertension type: unspecified Qualified Code(s): I10 - Essential (primary) hypertension (5) CAD (coronary artery disease) Associated angina: with stable angina Coronary Disease-Associated Artery/Lesion type: [place] artery [place] vs. transplanted heart: [place] heart Qualified Code(s): I25.118 - Atherosclerotic heart disease of [place] coronary artery with other forms of angina pectoris
[2023-11-16] MEDS: POTASSIUM CHLORIDE CRTAB 20 MEQ TABCR PO STA (17:05)
--- NOTE | 2023-11-17 06:00 | Electrocardiogram Report ---
Test Reason : Blood Pressure : */* mmHG Vent. 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
[2023-11-17] MEDS: OLANZapine ZYDIS 5 MG ORALLY DIS. TAB PO ONE (10:49)
--- NOTE | 2023-11-17 12:06 | Electrocardiogram Report ---
Test Reason : Blood Pressure : */* mmHG Vent. Rate : 68 BPM Atrial Rate : 68 BPM P-R Int : 236 ms QRS Dur : 90 ms QT Int : 410 ms P-R-T Axes : 42 65 62 degrees QTcB Int : 435 ms Poor data quality, interpretation may be adversely affected Sinus rhythm with 1st degree A-V block Low voltage QRS Abnormal ECG When compared with ECG of 15-Nov-2023 17:05, No significant change Confirmed by Ryan Ellington ([id number] on 11/17/2023 12:06:43 PM [facility] Confirmed By: Ryan Ellington
--- NOTE | 2023-11-17 13:33 | Hospitalist Progress Note ---
Date of Service November 17, 2023 Assessment & Plan (1) Agitation: Plan: 2 weeks hx worsening agitation likely due to noncompliance to his regular medication. patient stopped taking his regular medications 2 weeks ago per his assisted On workup there was no obvious source of infection or any acute electrolyte abnormality. Pt was on Abilify in the past. He was recently started on Haldol PO tid at assisted. Restlessness slightly improved after started on olanzapine. Remains medically stable - no acute changes. No fevers/SoB/N/V/D. Plan: -Possible d/c back to [facility] tomorrow. CW onboard and daughter aware. -started on Olanzapine 2.5mg BID PO. -c/w One to one observation. (2) Lewy body dementia: Plan: Possible further progression of disease. progressive decline - daughter wants comfort measures from now on. Plan: PO olanzapine as above. For comfort care - meds added and rest of the chronic condition meds discontinued. Admission and Anticipated Discharge Date Admission Date: November 15, 2023 Supervising Physician Co-Signing Physician Notes Attending Physician Supervision Note: I independently interviewed and examined the patient and verified the meek history and physical, reviewed labs and image studies and agree with findings and care plan noted above. Continues to have restlessness off and on but with improvement. Acute onset of agitation 2 wks ago and stopped taking routine meds Lewy body dementia - Resident at [facility], [facility] -ED work up negative including CT head. -Psych input - Haldol d/janis. Olanzapine ODT and IM for behavioral emergencies. -Started PO 2.5mgs bid olanzapine scheduled today Now transitioned care to comfort only. Subjective Pt was seen and evaluated this morning. 1:1 support present by the bedside. Restlessness improved further better today. Pt responding to commands and making some incoherent mumbling sounds. Nurse was by bedside. No report of fevers. Pt was started oral soluble Olanzapine 2.5mg trial today. Pts daughter, JONNIE, wants comfort measures. Review of Systems Review of Systems: pt AMS RoS not possible. Physical Exam Physical Exam: General:AMS, does not appear to be in any acute painful or respiratory distress, on room air. HEENT: Normocephalic, moist oral mucosa, Cardio: Regular rate and rhythm, no murmur, Resp:Lungs clear to auscultation b/l, no wheezes or rhonchi, GI: Soft and nontender, nondistended, bowel sounds active Skin: Warm, pink, dry, (2) Lewy body dementia Dementia behavioral or psychological symptom: with other behavioral disturbance Dementia severity: severe Qualified Code(s): G31.83 - Neurocognitive disorder with Lewy bodies; F02.C18 - Dementia in other diseases classified elsewhere, severe, with other behavioral disturbance
[2023-11-17] MEDS: OLANZapine ZYDIS 5 MG ORALLY DIS. TAB PO SCH (21:36)
[2023-11-18] MEDS: MoRPHine SULFATE 10 MG/0.5 ML UDP PO PRN (00:58)
--- NOTE | 2023-11-18 17:20 | Discharge Summary ---
Date of Service November 18, 2023 Admission HPI Per Admitting Provider Patient somnolent after receiving Haldol and Ativan in the ER. History obtained through discussion with ER staff and chart review. Patient is an 83yo male with history of HTN, HLP and Dementia (likely Lewy body) presenting from [place] with increased aggressive behavior. Patient with occasional outbursts, however, has had worsening symptoms over the last 1-2 weeks. This evening he was very difficult to control and did become aggressive with several staff members at his [facility]. In the ER patient was again aggressive with staff members. He was given Haldol and Ativan with improvement. Now resting comfortably ER Course: Haldol 1 + 2 mg Ativan 1 + 1 mg Admission Exam Per Admitting Provider General: patient somnolent, opens eyes to verbal stimuli, does not answer questions or follow commands at this time Skin: warm, dry, intact, no rashes or lesions HEENT: somnolent, MMM, Neck supple, PERRL Heart: +S1/S2, regular, no m/r/g Lungs: equal air entry bilaterally, no rales/rhonchi/wheezes Abd: +BS, soft, NT/ND, no masses/organomegaly/ascites Ext: warm, 2+ pulses in UE/LE bilaterally, no clubbing/cyanosis or edema Neuro: moving all extremities Principal Diagnosis Agitation 2/2 Lewy Body Dementia progression. Discharge Exam General:AMS, does not appear to be in any acute painful or respiratory distress, on room air. HEENT: Normocephalic, moist oral mucosa, Cardio: Regular rate and rhythm, no murmur, Resp:Lungs clear to auscultation b/l, no wheezes or rhonchi, GI: Soft and nontender, nondistended, bowel sounds active Skin: Warm, pink, dry, Discharge Data Allergies Allergy/AdvReac Type Severity Reaction Status Date / Time No Known Allergies Allergy Verified 10/11/23 21:41 Consultations 11/15/23 01:36 Consult Psychiatry Routine Ordered Studies 11/14/23 CT head/brain wo con Stat : No acute intracranial hemorrhage, midline shift, or mass effect. CXR : Cardiomegaly with interstitial coarsening which may be chronic. Hospital Course (1) Agitation: 2 weeks hx worsening agitation likely due to noncompliance to his regular medication. patient stopped taking his regular medications 2 weeks ago per his [facility]dc On workup there was no obvious source of infection or any acute electrolyte abnormality. CT head and CXR reported no acute changes noted. Pt was evaluated by Psych and started on Olanzapine PO + IM prn, for which he responded well. Remained medically stable as an inpatient No fevers/SoB/N/V/D. Pt was d/c on Olanzapine 5mg BID PO to continue. (2) Lewy body dementia: Possibility of further progression of disease and deterioration Pts Daughter - Tyrese, wants "comfort care" from now on. The plan is to continue with comfort care medications as prescribed. continue with comfort feeds and risk feeding. Patient is DNR/DNI. patient is d/c back to [facility]. Total Time Total Time Spent Total Time Spent (In Minutes): as per attending entry Discharge Plan Discharge Items Patient Disposition: Hospice - Medical Facility Reason For Visit: AGITATION, AGGRESSIVE BEHAVIOR IN DEMENTIA Discharge Diagnosis: Agitaion secondary to Lewy Body Dementia Activity: Per Instructions section Non-emergency contact: Primary Care Provider Call non-emergency contact if: your symptoms worsen Follow-up/Referrals: Maggie Hayward DO [Primary Care Provider] - Diet: Regular Diet Texture: Mechanical soft (ground) Addtl Attending Provider Instructions: Mr Story is a 83yo male with history of HTN, HLD and Dementia (likely Lewy body) presented with 2 weeks hx of agitation. Agitation -resolved 2 weeks hx worsening agitation likely due to noncompliance to his regular medica tion.patient stopped taking his regular medications 2 weeks ago per his [facility] On workup there was no obvious source of infection or any acute electrolyte abnormality. Pt was on Abilify in the past. He was recently started on Haldol PO tid at fdc. Remains medically stable. PO Olanzapine 5 mg BID that needs to be continued. Lewy body dementia: Possibility of further progression of disease and deterioration. Family (Daughter Alison Xiong) on board with a plan for "comfort care" from now on continue with comfort care medications as prescribed. continue with comfort feeds and risk feeding. Patient is DNR/DNI. Pending Studies at Discharge: No Stand-Alone Forms: My [facility] Skilled Items Patient informed of condition?: Yes DNR: Yes Discharge Level of Care: Other Communicable Disease: No Discharge Prognosis: Deteriorating Lines: None Urinary Catheter: No Medications and DC Order Prescriptions: New acetaminophen 325 mg Tablet 650 mg PO Q4H PRN (Reason: fever or pain) 30 Days Qty: 60 1RF morphine concentrate 100 mg/5 mL (20 mg/mL) Solution 5 mg PO Q3H PRN (Reason: dyspnea) 30 Days Qty: 100 1RF atropine 1 % Drops 4 drp sublingual Q1H PRN (Reason: secretions) 30 Days Qty: 20 1RF hyoscyamine sulfate [Levsin] 0.125 mg Tablet 0.125 mg sublingual Q4H PRN (Reason: secretions) Qty: 60 1RF lorazepam 0.5 mg Tablet 0.5 mg PO Q4H PRN (Reason: agitation) 30 Days Qty: 30 1RF olanzapine 5 mg tablet,disintegrating 5 mg PO BID Qty: 60 0RF Discontinued ramipril [Altace] 2.5 mg capsule 0 mg PO QAM Rx Instructions: Per fulfillment pharmacy this was filled. Unable to reach SNF to get medication list. Original Directions: 2.5mg by mouth daily atorvastatin [Lipitor] 80 mg tablet 80 mg PO DAILY fenofibrate nanocrystallized [Tricor] 48 mg tablet 48 mg PO DAILY clopidogrel [Plavix] 75 mg tablet 75 mg PO DAILY melatonin 5 mg capsule 5 mg PO HS haloperidol 1 mg tablet 0 mg PO Q8H PRN (Reason: Unknown) Rx Instructions: Per fulfillment pharmacy this was filled. Unable to reach SNF to get medication list. Original Directions: 1mg by mouth every 8 hours as needed olanzapine 2.5 mg Tablet 0 mg PO BID Rx Instructions: Unable to verify w/ fulfillment pharmacy at this date/time. Unable to reach SNF to get medication list. Original Directions: 2.5mg by mouth twice daily Discharge Orders: Discharge Order (Routine); Ordered 11/18/23 Ordered By: Rigo Diaz Admission Data Admit Date/Time: 11/15/23 01:36 Attending Provider: Sheila Castaneda Admit Provider: Nhung Chaidez Primary Care Provider: Maggie Hayward Other Providers: Maryanne Jung; Andrea Wright; Ramu Atkinson Jr; Oanh Patel; Namrata Ibarra; Leo Amaro Supervising Physician Co-Signing Physician Notes Attending Physician Supervision Note: I independently interviewed and examined the patient and verified the meek history and physical, reviewed labs and image studies and agree with findings and care plan noted above. continued to be restless in bed. Acute onset of agitation 2 wks ago and stopped taking routine meds Lewy body dementia - Resident at [facility], [place] -ED work up negative including CT head. -Psych input - Haldol d/janis. Recommended prn olanzapine OD until able to resume schedule oral dose. -Per discussion with daughter - Transitioned to comfort care. -Discharged on 5mgs bid olanzapine scheduled. -prn morphine and lorazepam. Resident Activity Tracking Resident Involvement: Resident Care Provided Care Provided: Adult Hospital Medicine
== END 2023-11-18 12:20 | disposition hospice, home (50) | DRG 57 ==
LOC: ED 21:36 → EDINP 11-15 01:36 → SUATTDRO 11-15 01:36 → EDINP 11-15 04:28 → 3E 11-15 04:58